=== PATIENT | male | born 1990 | race African-American/Black ===

== ENCOUNTER 2017-10-21 13:00 | Emergency (ER) | payer OTHER ==
[~2017-10-21] VITALS: Ht 167.6 cm; Wt 95.3 kg
[2017-10-21 13:44] LABS: CALCIUM 9.3 mg/dL (8.5-10.1); CREATININE 1.2 mg/dL (0.6-1.3); POTASSIUM 3.5 mmol/L (3.5-5.1)
[2017-10-21 13:59] LABS: INFLUENZA B ANTIGEN None Detected (None Detect)
[2017-10-21] MEDS ORDERED: ZOFRAN4 MG PO (14:13)
[2017-10-21 14:27] VITALS: BP 143/75
== END 2017-10-21 14:29 | disposition home or self-care (01) ==
LOC: M.ERS 13:00
PROVIDERS: Physician Assistant
DX: J09.X2 Influenza due to identified novel influenza A virus with other respiratory manifestations (principal)